=== PATIENT | female | born 1970 ===

== ENCOUNTER 2020-11-16 06:00 | Outpatient (RCR) | payer BC, SELFPAY | END 2020-11-18 23:59 | disposition home or self-care (01) | LOC: MPT 06:00 | PROVIDERS: Referring Provider Physician Assistant; Visit Provider Physician Assistant | DX: N81.89 Other female genital prolapse (principal) | CPT/HCPCS: 97110; 97140; 97161; 97530 ==

== ENCOUNTER 2020-11-19 06:00 | Outpatient (RCR) | payer BC, SELFPAY | END 2020-12-19 23:59 | disposition home or self-care (01) | LOC: MPT 06:00 | PROVIDERS: Referring Provider Physician Assistant; Visit Provider Physician Assistant | DX: N81.89 Other female genital prolapse (principal) | CPT/HCPCS: 97110; 97140; 97530 ==